=== PATIENT | female | born 1995 | race African-American/Black ===

== ENCOUNTER 2020-10-14 07:28 | Emergency (ER) | payer OTHER | END 2020-10-14 07:51 | disposition home or self-care (01) | LOC: CSHERS 07:28 | DX: K04.7 Periapical abscess without sinus (principal) | CPT/HCPCS: 99282 ==

== ENCOUNTER 2022-10-09 14:12 | Emergency (ER) | payer OTHER ==
[2022-10-09] MEDS ORDERED: Magnesium 2 GM/50 ML BAG (IN WATER) ONE (15:32)
[2022-10-09] MEDS ORDERED: Prochlorperazine 10 MG/2 ML VIAL ONE (15:33)
[2022-10-09] MEDS ORDERED: Ketorolac Tromethamine 30 MG/ML VIAL ONE (15:33)
[2022-10-09 16:54] LABS: SARS-CoV-2 NAA Rapid Test Not Detected (NotDetected)
== END 2022-10-09 18:06 | disposition home or self-care (01) ==
LOC: CSHERS 14:12
DX: R51.9 Headache, unspecified (principal); Z20.822 Contact with and (suspected) exposure to COVID-19
CPT/HCPCS: 96365; 96375; J0780; J1885; J3475

== ENCOUNTER 2023-05-19 19:07 | Emergency (ER) | payer OTHER ==
[2023-05-19 20:35] LABS: SARS-CoV-2 NAA Rapid Test Not Detected (NotDetected)
== END 2023-05-19 23:18 | disposition home or self-care (01) ==
LOC: CSHERS 19:07
DX: J10.1 Influenza due to other identified influenza virus with other respiratory manifestations (principal); Z20.822 Contact with and (suspected) exposure to COVID-19
CPT/HCPCS: 99283